=== PATIENT | male | born 1960 ===

== ENCOUNTER 2021-07-23 05:36 | Day surgery (SDC) | payer OTHER ==
[~2021-07-23 05:36] MED LIST: METOTREXATE PO; VOLTAREN PO
[2021-07-23] MEDS ORDERED: ULTRACET PO (09:44)
[2021-07-23] MEDS ORDERED: AMOX1TAB5 PO (09:46)
== END 2021-07-23 11:15 | disposition home or self-care (01) ==
LOC: CIR.AMB 05:36
PROVIDERS: ATTEND Surgery
DX: L92.8 Other granulomatous disorders of the skin and subcutaneous tissue (principal); Z20.822 Contact with and (suspected) exposure to COVID-19